=== PATIENT | male | born 1965 | race Asian ===

== ENCOUNTER 2022-06-29 11:58 | Inpatient (IN) | payer MEDICAID ==
[~2022-06-29] VITALS: Ht 167.6 cm; Wt 64.7 kg
[2022-06-29] MEDS ORDERED: PROMETHAZINE HCL 25 MG TABLET PO PRN (12:30)
[2022-06-29] MEDS ORDERED: HydrOXYzine PAMOATE 50 MG CAPSULE PO PRN (12:30)
[2022-06-29] MEDS ORDERED: GuaiFENesin/D-METHORPHAN [SUGAR-FREE] 200-20MG/10 ML SYRUP UDCUP PO PRN (12:30)
[2022-06-29] MEDS ORDERED: MAGNESIUM HYDROXIDE SUSPENSION 30 ML UDCUP PO PRN (12:30)
[2022-06-29] MEDS ORDERED: LOPERAMIDE HCL 2 MG CAPSULE PO PRN (12:30)
[2022-06-29] MEDS ORDERED: ZOLPIDEM TARTRATE 10 MG TABLET PO PRN (12:30)
[2022-06-29] MEDS ORDERED: OLANZapine 5 MG RAPDIS TABLET PO PRN (12:30)
[2022-06-29] MEDS ORDERED: TUBERCULIN, PURIFIED PROTEIN DERIVATIVE 5 TU/0.1 ML SYRINGE ID ONE (12:30)
[2022-06-29] MEDS ORDERED: MAG HYDROX/AL HYDROX/SIMETH ES 30 ML SUSPENSION UDCUP PO PRN (12:30)
[2022-06-29] MEDS ORDERED: HALOPERIDOL 5 MG TABLET PO PRN (12:30)
[2022-06-29 13:16] LABS: GLUCOMETER DEV NAME(LOC) POC.BV
[2022-06-29 14:24] VITALS: BP 119/86
[2022-06-29] MEDS: THIAMINE 100 MG TABLET PO SCH (16:42)
[2022-06-29 20:18] VITALS: BP 116/76
[2022-06-29] MEDS: OLANZapine 5 MG RAPDIS TABLET PO SCH (20:40)
[2022-06-29] MEDS: MELATONIN 5 MG TABLET PO SCH (20:41)
[2022-06-30 07:06] LABS: BASOPHILS % (AUTO) 2.1 % (0.0-2.0); EOSINOPHILS % (AUTO) 10.7 % (1.0-6.0); HEMATOCRIT 41.1 % (41-53); HEMOGLOBIN 13.7 g/dL (13.5-17.5); LYMPHOCYTES # (AUTO) 1.7 K/uL (1.0-4.8); MEAN CORPUSCULAR HEMOGLOBIN 30.5 pg (26.0-34.0); MEAN CORPUSCULAR HGB CONC 33.4 G/dL (31.0-37.0); MEAN CORPUSCULAR VOLUME 92 fL (80-100); MONOCYTES # (AUTO) 0.4 K/uL (0.1-1.0); MONOCYTES % (AUTO) 8.5 % (2.0-9.0); NEUTROPHILS # (AUTO) 2.1 K/uL (1.8-7.7); NEUTROPHILS % (AUTO) 43.7 % (40.0-70.0); PLATELET COUNT (AUTO) 308 K/uL (150-450); RED BLOOD CELL COUNT(AUTO) 4.49 MIL/uL (4.50-5.90); RED CELL DISTRIBUTION WIDTH 14.3 % (11.5-14.5)
[2022-06-30 07:26] LABS: ALANINE AMINOTRANSFERASE 24 U/L (12-78); ALBUMIN 3.8 g/dL (3.4-5.0); ALKALINE PHOSPHATASE 78 U/L (46-116); ANION GAP 5 mmol/L (8-16); ASPARTATE AMINOTRANSFERASE 15 U/L (15-37); BILIRUBIN,TOTAL 0.5 mg/dL (0.1-1.0); CALCIUM, TOTAL 8.9 mg/dL (8.8-10.5); CARBON DIOXIDE 29 mmol/L (22-29); CHLORIDE 104 mmol/L (98-107); CHOL/HDL RATIO 4.1 (4.2-7.3); CHOLESTEROL 208 mg/dL (131-200); FREE T4 (FREE THYROXINE) 1.15 ng/dL (0.76-1.46); GLUCOSE,RANDOM 132 mg/dL (70-110); HDL CHOLESTEROL 51 mg/dL (40-60); LDL CHOL (CALC.) 141 mg/dL (0-130); POTASSIUM 3.8 mmol/L (3.5-5.1); SODIUM SERUM 138 mmol/L (136-145); THYROID STIMULATING HORMONE 0.72 uIU/mL (0.36-3.74); TOTAL PROTEIN, SERUM 7.4 g/dL (6.4-8.2); TRIGLYCERIDES 79 mg/dL (15-150); UREA NITROGEN, BLOOD 17 mg/dL (7-18)
[2022-06-30 07:27] LABS: HEMOGLOBIN A1C 5.6 % (3.8-5.6)
[2022-06-30 07:30] LABS: GLOMERULAR FILTR. RATE CALC > 60 mL/min (>60)
[2022-06-30 08:42] VITALS: BP 109/70
[2022-06-30] MEDS ORDERED: OMEGA-3/DHA/EPA/FISH OIL 1,000 MG CAPSULE PO SCH (09:00)
[2022-06-30] MEDS: THIAMINE 100 MG TABLET PO SCH ×2 (09:22→16:23)
[2022-06-30] MEDS: NALTREXONE HCL 50 MG TABLET PO SCH (09:22)
[2022-06-30] MEDS: MULTIVITAMINS WITH MINERALS, THERAPEUTIC TABLET PO SCH (09:22)
[2022-06-30] MEDS: FOLIC ACID 1 MG TABLET PO SCH (09:22)
[2022-06-30 20:16] VITALS: BP 109/67
[2022-06-30] MEDS: OLANZapine 5 MG RAPDIS TABLET PO SCH (20:40)
[2022-06-30] MEDS: MELATONIN 5 MG TABLET PO SCH (20:40)
[2022-07-01 07:53] LABS: APPEARANCE,URINE CLEAR (CLEAR); BILIRUBIN,URINE NEGATIVE (NEGATIVE); GLUCOSE, URINE (UA) NEGATIVE (NEGATIVE); KETONES,URINE NEGATIVE (NEGATIVE); LEUKOCYTE ESTERASE ,URINE NEGATIVE (NEGATIVE); NITRATE,URINE NEGATIVE (NEGATIVE); OCCULT BLOOD,URINE NEGATIVE (NEGATIVE); PH,URINE 5.5 (5.0-8.0); PROTEIN,URINE NEGATIVE (NEGATIVE); SPECIFIC GRAVITIY, URINE 1.022 (1.003-1.030); UROBILINOGEN,URINE <=1.0 mg/dL (<=1.0)
[2022-07-01 07:59] LABS: AMPHET/METH SCREEN,URINE POSITIVE (NEGATIVE); BARBITURATE SCREEN, URINE NEGATIVE (NEGATIVE); BENZODIAZEPINES SCREEN,URINE NEGATIVE (NEGATIVE); CANNABINOID SCREEN,URINE NEGATIVE (NEGATIVE); COCAINE SCREEN,URINE NEGATIVE (NEGATIVE); METHADONE SCREEN, URINE NEGATIVE (NEGATIVE); OPIATE SCREEN,URINE NEGATIVE (NEGATIVE)
[2022-07-01 08:00] LABS: PHENCYCLIDINE SCREEN,URINE NEGATIVE (NEGATIVE)
[2022-07-01] MEDS: THIAMINE 100 MG TABLET PO SCH ×2 (08:38→16:37)
[2022-07-01] MEDS: NALTREXONE HCL 50 MG TABLET PO SCH (08:38)
[2022-07-01] MEDS: FOLIC ACID 1 MG TABLET PO SCH (08:38)
[2022-07-01] MEDS: MULTIVITAMINS WITH MINERALS, THERAPEUTIC TABLET PO SCH (08:38)
[2022-07-01 20:33] VITALS: BP 118/74
[2022-07-01] MEDS: OLANZapine 10 MG RAPDIS TABLET PO SCH (20:41)
[2022-07-01] MEDS: MELATONIN 5 MG TABLET PO SCH (20:42)
[2022-07-02 08:23] VITALS: BP 111/74
[2022-07-02] MEDS: THIAMINE 100 MG TABLET PO SCH ×2 (08:55→16:17)
[2022-07-02] MEDS: FOLIC ACID 1 MG TABLET PO SCH (08:55)
[2022-07-02] MEDS: NALTREXONE HCL 50 MG TABLET PO SCH (08:55)
[2022-07-02] MEDS: MULTIVITAMINS WITH MINERALS, THERAPEUTIC TABLET PO SCH (08:55)
[2022-07-02 20:15] VITALS: BP 120/66
[2022-07-02] MEDS: OLANZapine 10 MG RAPDIS TABLET PO SCH (20:17)
[2022-07-02] MEDS: ACETAMINOPHEN 325 MG TABLET PO PRN (20:18)
[2022-07-02] MEDS: MELATONIN 5 MG TABLET PO SCH (20:18)
[2022-07-03] MEDS: MULTIVITAMINS WITH MINERALS, THERAPEUTIC TABLET PO SCH (08:20)
[2022-07-03] MEDS: FOLIC ACID 1 MG TABLET PO SCH (08:20)
[2022-07-03] MEDS: NALTREXONE HCL 50 MG TABLET PO SCH (08:20)
[2022-07-03] MEDS: THIAMINE 100 MG TABLET PO SCH ×2 (08:20→16:15)
[2022-07-03 08:51] VITALS: BP 118/72
[2022-07-03] MEDS ORDERED: BuPROPion HCL XL 150 MG ER TABLET PO SCH (09:00)
[2022-07-03] MEDS: ACETAMINOPHEN 325 MG TABLET PO PRN (11:02)
[2022-07-03] MEDS: OLANZapine 10 MG RAPDIS TABLET PO SCH (20:09)
[2022-07-03] MEDS: MELATONIN 5 MG TABLET PO SCH (20:09)
[2022-07-03 21:34] VITALS: BP 118/63
[2022-07-04 08:05] VITALS: BP 119/78
[2022-07-04] MEDS: FOLIC ACID 1 MG TABLET PO SCH (08:20)
[2022-07-04] MEDS: NALTREXONE HCL 50 MG TABLET PO SCH (08:20)
[2022-07-04] MEDS: THIAMINE 100 MG TABLET PO SCH ×2 (08:21→16:51)
[2022-07-04] MEDS: BuPROPion HCL XL 150 MG ER TABLET PO SCH (08:21)
[2022-07-04] MEDS: MULTIVITAMINS WITH MINERALS, THERAPEUTIC TABLET PO SCH (08:21)
[2022-07-04 09:41] LABS: GLUCOMETER DEV NAME(LOC) POC.BV
[2022-07-04] MEDS: NICOTINE POLACRILEX 2 MG LOZENGE PO PRN (19:23)
[2022-07-04 20:11] VITALS: BP 104/63
[2022-07-04] MEDS: OLANZapine 10 MG RAPDIS TABLET PO SCH (20:45)
[2022-07-04] MEDS: MELATONIN 5 MG TABLET PO SCH (20:46)
[2022-07-05 08:24] VITALS: BP 118/70
[2022-07-05 08:31] VITALS: BP 118/70
[2022-07-05] MEDS: NICOTINE POLACRILEX 2 MG LOZENGE PO PRN ×2 (09:08→17:11)
[2022-07-05] MEDS: THIAMINE 100 MG TABLET PO SCH ×2 (09:09→16:53)
[2022-07-05] MEDS: FOLIC ACID 1 MG TABLET PO SCH (09:09)
[2022-07-05] MEDS: BuPROPion HCL XL 150 MG ER TABLET PO SCH (09:09)
[2022-07-05] MEDS: MULTIVITAMINS WITH MINERALS, THERAPEUTIC TABLET PO SCH (09:09)
[2022-07-05] MEDS: NALTREXONE HCL 50 MG TABLET PO SCH (09:36)
[2022-07-05 20:14] VITALS: BP 106/60
[2022-07-05] MEDS: MELATONIN 5 MG TABLET PO SCH (20:29)
[2022-07-05] MEDS: OLANZapine 10 MG RAPDIS TABLET PO SCH (20:29)
[2022-07-06 08:39] VITALS: BP 108/66
[2022-07-06] MEDS: THIAMINE 100 MG TABLET PO SCH ×2 (08:56→16:02)
[2022-07-06] MEDS: MULTIVITAMINS WITH MINERALS, THERAPEUTIC TABLET PO SCH (08:56)
[2022-07-06] MEDS: FOLIC ACID 1 MG TABLET PO SCH (08:56)
[2022-07-06] MEDS: NALTREXONE HCL 50 MG TABLET PO SCH (08:56)
[2022-07-06] MEDS: BuPROPion HCL XL 150 MG ER TABLET PO SCH (08:56)
[2022-07-06] MEDS: NICOTINE POLACRILEX 2 MG LOZENGE PO PRN ×3 (09:09→20:16)
[2022-07-06 20:01] VITALS: BP 111/67
[2022-07-06] MEDS: OLANZapine 10 MG RAPDIS TABLET PO SCH (20:15)
[2022-07-06] MEDS: MELATONIN 5 MG TABLET PO SCH (20:16)
[2022-07-07 08:41] VITALS: BP 116/68
[2022-07-07] MEDS: BuPROPion HCL XL 150 MG ER TABLET PO SCH (09:04)
[2022-07-07] MEDS: NALTREXONE HCL 50 MG TABLET PO SCH (09:05)
[2022-07-07] MEDS: MULTIVITAMINS WITH MINERALS, THERAPEUTIC TABLET PO SCH (09:05)
[2022-07-07] MEDS: THIAMINE 100 MG TABLET PO SCH ×2 (09:05→16:46)
[2022-07-07] MEDS: FOLIC ACID 1 MG TABLET PO SCH (09:06)
[2022-07-07] MEDS: NICOTINE POLACRILEX 2 MG LOZENGE PO PRN ×3 (09:31→18:19)
[2022-07-07 20:03] VITALS: BP 114/72
[2022-07-07] MEDS: OLANZapine 10 MG RAPDIS TABLET PO SCH (20:35)
[2022-07-07] MEDS: MELATONIN 5 MG TABLET PO SCH (20:36)
[2022-07-08 08:13] VITALS: BP 114/75
[2022-07-08 08:22] LABS: GLUCOMETER DEV NAME(LOC) POC.BV
[2022-07-08] MEDS: BuPROPion HCL XL 150 MG ER TABLET PO SCH (09:19)
[2022-07-08] MEDS: FOLIC ACID 1 MG TABLET PO SCH (09:19)
[2022-07-08] MEDS: NALTREXONE HCL 50 MG TABLET PO SCH (09:19)
[2022-07-08] MEDS: THIAMINE 100 MG TABLET PO SCH ×2 (09:19→16:53)
[2022-07-08] MEDS: MULTIVITAMINS WITH MINERALS, THERAPEUTIC TABLET PO SCH (09:19)
[2022-07-08] MEDS: NICOTINE POLACRILEX 2 MG LOZENGE PO PRN ×2 (15:09→20:25)
[2022-07-08] MEDS: MELATONIN 5 MG TABLET PO SCH (20:06)
[2022-07-08] MEDS: OLANZapine 10 MG RAPDIS TABLET PO SCH (20:06)
[2022-07-08] MEDS ORDERED: OLAN10TA26 PO (20:10)
[2022-07-08] MEDS ORDERED: BUPR-49 PO (20:10)
[2022-07-08] MEDS ORDERED: MELA5TAB40 PO (20:10)
[2022-07-08] MEDS ORDERED: NALT50TA PO (20:10)
[2022-07-08 20:19] VITALS: BP 106/74
[2022-07-09] MEDS: MULTIVITAMINS WITH MINERALS, THERAPEUTIC TABLET PO SCH (08:04)
[2022-07-09] MEDS: FOLIC ACID 1 MG TABLET PO SCH (08:05)
[2022-07-09] MEDS: THIAMINE 100 MG TABLET PO SCH (08:05)
[2022-07-09] MEDS: BuPROPion HCL XL 150 MG ER TABLET PO SCH (08:05)
[2022-07-09] MEDS: NALTREXONE HCL 50 MG TABLET PO SCH (08:05)
== END 2022-07-09 08:30 | disposition home or self-care (01) | DRG 750 ==
LOC: B2S 12:48
PROVIDERS: ADMIT Psychiatry & Neurology Psychiatry; ATTEND Psychiatry & Neurology Psychiatry
DX: F20.9 Schizophrenia, unspecified (principal); R45.851 Suicidal ideations; Z91.14 Patient's other noncompliance with medication regimen; E78.5 Hyperlipidemia, unspecified; Z20.822 Contact with and (suspected) exposure to COVID-19; F12.90 Cannabis use, unspecified, uncomplicated; F15.10 Other stimulant abuse, uncomplicated; F17.210 Nicotine dependence, cigarettes, uncomplicated; F32.A Depression, unspecified; J44.9 Chronic obstructive pulmonary disease, unspecified; Z55.9 Problems related to education and literacy, unspecified; Z59.9 Problem related to housing and economic circumstances, unspecified; Z63.9 Problem related to primary support group, unspecified; Z65.3 Problems related to other legal circumstances; Z79.899 Other long term (current) drug therapy; Z91.199 Patient's noncompliance with other medical treatment and regimen due to unspecified reason
CPT/HCPCS: 71045; 80053; 80061; 80307; 81003; 83036; 84439; 84443; 85025; 86592; 87081; Q9967; 36415-L1; 36415-TC